=== PATIENT | male | born 1960 | race Caucasian/White ===

== ENCOUNTER 2017-11-13 19:30 | Emergency (ER) | payer OTHER ==
[~2017-11-13 19:30] MED LIST: Iopamidol 370 76% 100 ML VIAL ONE
[2017-11-13] MEDS ORDERED: Metoclopramide HCl 10 MG/2 ML VIAL ONE (20:00)
[2017-11-13 20:11] LABS: #Basophils 0.1 thou/uL (0.0-0.2); #Eosinphils 0.1 thou/uL (0.0-0.7); #Lymphocytes 1.6 thou/uL (1.20-3.40); #Monocytes 0.6 thou/uL (0.11-0.59); #Neutrophils 6.3 thou/uL (1.40-6.50); %Basophils 1.1 % (0.0-1.0); %Lymphocytes 18.6 % (21.0-51.0); %Monocytes 7.2 % (0.0-10.0); %Neutrophils 72.1 % (42.0-75.0); Hemoglobin 16.1 g/dL (14.0-18.0); Mean Corpuscular HGB CONC 34.4 g/dL (32.0-36.0); Mean Corpuscular Hemoglobin 29.6 pg (27.0-31.0); Mean Corpuscular Volume 86.1 fL (78.0-98.0); Mean Platelet Volume 8.2 fL (7.4-10.4); Platelet Count 220 thou/uL (130-400); RBC Distribution Width 10.7 % (11.5-14.5); Red Blood Cell (RBC) Count 5.45 mill/uL (4.70-6.10); White Blood Cell (WBC) Count 8.8 thou/uL (4.8-10.8)
[2017-11-13 20:28] LABS: ALT (SGPT) 41 U/L (8-55); AST (SGOT) 22 U/L (5-34); Albumin 4.5 g/dL (3.5-5.0); Alkaline Phosphatase 66 U/L (40-150); Anion Gap 13 mmol/L (10-20); BUN (Urea Nitrogen) 13 mg/dL (8.4-25.7); Bilirubin, Total 0.6 mg/dL (0.2-1.2); Calc. Creatinine Clearance 0 mL/min (70-130); Calcium 9.9 mg/dL (7.8-10.44); Carbon Dioxide 24 mmol/L (22-29); Chloride 105 mmol/L (98-107); Estimated GFR-MDRD 71; Globulin 2.8 g/dL (2.4-3.5); Glucose 106 mg/dL (70-105); Potassium 4.1 mmol/L (3.5-5.1); Protein, Total 7.3 g/dL (6.0-8.3); Sodium 138 mmol/L (136-145)
[2017-11-13] MEDS ORDERED: Ketorolac Tromethamine 30 MG/ML VIAL ONE (20:29)
--- NOTE | 2017-11-13 21:27 | CT ---
NONCONTRAST CT HEAD: 11/13/17 HISTORY: Headache. Right eye discomfort. COMPARISON: None available. FINDINGS: There is no evidence of a hemorrhage, acute infarction, mass effect, or midline shift. Ventricular sy stem is normal in size, shape and position. The visualized paranasal sinuses and mastoid air cells ar e clear. The calvarial structures are intact. The visualized orbits have a normal and symmetric appea kiko bilaterally. IMPRESSION: No acute intracranial abnormality is demonstrated. POS: LUIS ARMANDOH
--- NOTE | 2017-11-13 21:53 | CT ---
CT ORBITS WITH IV CONTRAST 11/13/17 HISTORY: Sudden onset of right eye discomfort that began this past weekend with worsening pain. Patient notes associated tearing and redness and itching. FINDINGS: The orbits are normal and symmetric in appearance bilaterally. No post septal inflammatory stranding or fluid collection is identified. The extraocular eye muscles are symmetric in appearance bilaterall y. The osseous structures are intact. Mild mucosal thickening is seen in the right maxillary antrum. Minimal mucosal thickening is seen in a few anterior ethmoidal air cells. The mastoid air cells are clear. IMPRESSION: The orbits have a symmetric and normal appearance bilaterally. No post septal inflammatory changes or fluid collection is identified. No obvious soft tissue irregularity or significant soft tissue swell ing is present on this exam. POS: [email or web address]
== END 2017-11-13 21:25 | disposition home or self-care (01) ==
LOC: SCSER 19:30
DX: J01.90 Acute sinusitis, unspecified (principal); E78.5 Hyperlipidemia, unspecified; I10 Essential (primary) hypertension
CPT/HCPCS: 70450; 70481; 80053; 85025; 96365; 96375; J1885; J2765